=== PATIENT | male | born 1985 | race African-American/Black ===

== ENCOUNTER 2019-11-12 12:07 | Emergency (ER) | payer SELFPAY ==
--- NOTE | ~2019-11-12 | XR_ITS ---
XR wrist LT min 3V 11/12/2019 15:28 INDICATION: Left wrist pain PROCEDURE: 4 views left wrist COMPARISON: No prior studies for comparison. FINDINGS: Fracture, dislocation or subluxation is not identified. The soft tissues appear within norm al limits. No foreign bodies are identified. IMPRESSION: 1: NO ACUTE BONE OR JOINT ABNORMALITY IDENTIFIED. Reviewed, dictated and finalized at location A.
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
[2019-11-12 12:25] VITALS: BP 148/83; PULSE 86; RESP 18; TEMP 36.6; O2SAT 100
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
[2019-11-12 15:54] VITALS: BP 138/80; PULSE 78; RESP 18; O2SAT 99
== END 2019-11-12 15:55 | disposition home or self-care (01) ==
PROVIDERS: Emergency Provider Emergency Medicine
DX: S16.1XXA Strain of muscle, fascia and tendon at neck level, initial encounter (principal); M25.512 Pain in left shoulder; V49.9XXA Car occupant (driver) (passenger) injured in unspecified traffic accident, initial encounter
CPT/HCPCS: 72125; 73110; 99284

== ENCOUNTER 2023-01-24 14:56 | Emergency (ER) | payer OTHER, SELFPAY ==
[2023-01-24] VITALS (22 sets, daily range): BP systolic 156–200; BP diastolic 98–119; PULSE 68–102; RESP 13–21; TEMP 36.8; O2SAT 97–100
--- NOTE | ~2023-01-24 | US_ITS ---
EXAMINATION: US venous doppler UE DATE: 01/24/2023 19:52 INDICATION: Left upper limb pain. TECHNIQUE: Grayscale ultrasound images without and with compression and Doppler ultrasound images of the left upper extremity veins were obtained. COMPARISON: None. FINDINGS: The visualized portions of the left internal jugular vein, subclavian vein, axillary vein, brachial v eins, basilic vein, cephalic vein, radial vein, and ulnar vein are patent. IMPRESSION: 1. No deep venous thrombosis. Reviewed, dictated and finalized at location E.
--- NOTE | ~2023-01-24 | CT_ITS ---
EXAMINATION: CT cervical spine wo con DATE: 01/24/2023 18:28 INDICATION: Neck pain. TECHNIQUE: Computed tomography (CT) of the cervical spine was performed without intravenous contrast. Automated exposure control and iterative reconstruction technique were employed. The dose-length pro duct was 538.03 mGy-cm. COMPARISON: CT cervical spine 11/12/19 FINDINGS: There is cerumen in left external auditory canal. There is kyphosis of cervical spine. Ther e is 5 degrees dextrocurvature of cervical spine. Vertebral body heights are normal. There is moderat awilda decreased disc height at C3-C4, C4-C5, C5-6. The following disc levels are specifically discussed : C2-C3: There is mild bilateral uncovertebral joint osteoarthritis. There is mild bilateral facet join t osteoarthritis. There is no neural foraminal stenosis. There is no central canal stenosis. C3-C4: There is severe uncovertebral joint osteoarthritis. There is no facet joint osteoarthritis. Th ere is moderate bilateral neural foraminal stenosis. There is mild central canal stenosis. C4-C5: There is mild right and moderate left uncovertebral joint osteoarthritis. There is no facet edna int osteoarthritis. There is mild bilateral neural foraminal stenosis. There is mild central canal st enosis. C5-C6: There is moderate right and mild left uncovertebral joint osteoarthritis. There is no facet edna int osteoarthritis. There is mild right neural foraminal stenosis. There is mild central canal stenos is. C6-C7: There is no uncovertebral joint osteoarthritis. There is mild bilateral facet joint osteoarthr itis. There is no neural foraminal stenosis. There is no central canal stenosis. C7-T1: There is no uncovertebral joint osteoarthritis. There is moderate right and mild left facet edna int osteoarthritis. There is no neural foraminal stenosis. There is no central canal stenosis. IMPRESSION: 1. Moderate cervical spondylosis, worsened from 11/12/19. Reviewed, dictated and finalized at location E.
--- NOTE | ~2023-01-24 | XR_ITS ---
EXAMINATION: XR chest 2V DATE: 01/24/2023 16:09 INDICATION: Shortness of breath. TECHNIQUE: Frontal and lateral views of the chest were obtained. COMPARISON: Chest single view 04/25/2017 FINDINGS: There is no pneumonia, pleural effusion, or pneumothorax. The heart size is normal. IMPRESSION: 1. No acute cardiopulmonary disease. Reviewed, dictated and finalized at location E.
--- NOTE | ~2023-01-24 | XR_ITS ---
EXAMINATION: XR shoulder LT min 2V DATE: 01/24/2023 18:25 INDICATION: Left shoulder pain. TECHNIQUE: 4 views of left shoulder were obtained. COMPARISON: None. FINDINGS: Bone alignment is normal. No fracture. Joint spaces are normal. IMPRESSION: 1. Normal left shoulder. Reviewed, dictated and finalized at location E. IMPRESSION: 1. Normal left shoulder.
--- NOTE | ~2023-01-24 | CT_ITS ---
EXAMINATION: CTA chest PE protocol DATE: 01/24/2023 21:15 INDICATION: Left chest pain. Shortness of breath. TECHNIQUE: Computed tomography angiography (CTA) of the chest was performed with 100 mL Omnipaque-350 intravenous contrast timed to evaluate the pulmonary arteries. Coronal maximum intensity projection 3D-reconstructions were created by the technologist. Automated exposure control and iterative reconst ruction technique were employed. The dose-length product was 1818.38 mGy-cm. COMPARISON: Chest 2 views 01/24/2023 FINDINGS: There is no pneumonia or pleural effusion. The heart size is normal. No pericardial effusio n. There is no pulmonary embolus. There is interbody fusion at T9-T10. IMPRESSION: 1. No pulmonary embolus. Reviewed, dictated and finalized at location E. IMPRESSION: 1. No pulmonary embolus.
--- NOTE | 2023-01-24 15:09 | ECG_ITS ---
Measurements Intervals [place] Rate: 97 P: 42 CT: 156 QRS: -17 QRSD: 86 T: 31 QT: 333 QTc: 425 Interpretive Statements SINUS RHYTHM INCOMPLETE RIGHT BUNDLE BRANCH BLOCK NONSPECIFIC T-WAVE ABNORMALITY- DIFFUSE LEADS BORDERLINE ECG NO PREVIOUS ECG AVAILABLE FOR COMPARISON Electronically Signed On 01-24-2023 17:12:34 CDT by Brandon West D.O.
[2023-01-24 15:29] LABS: Basophils Absolute Auto 0.1 K/mm3 (0.0-0.1); Basophils Percent Auto 0.6 % (0.2-1.2); Eosinophils Absolute Auto 0.1 K/mm3 (0-0.3); Eosinophils Percent Auto 0.9 % (0-4.4); Hematocrit 43.2 % (42.0-52.0); Hemoglobin 13.2 g/dL (14.0-18.0); Immature Granulocyte Absolute 0.08 K/mm3 (0.00-0.031); Immature Granulocyte Percent A 0.9 % (0-0.5); Lymphocytes Absolute Auto 1.74 K/mm3 (0.9-3.2); Lymphocytes Percent Auto 20.2 % (18.3-44.2); Mean Corpuscular HGB Conc 30.6 g/dl (32-36); Mean Corpuscular Hemoglobin 26.3 pg (26-34); Mean Corpuscular Volume 86.2 fl (80-100); Monocytes Absolute Auto 0.8 K/mm3 (0.1-0.6); Monocytes Percent Auto 9.2 % (2.6-8.5); Neutrophils Absolute Auto 5.9 K/mm3 (1.3-6.7); Neutrophils Percent Auto 68.2 % (45.5-73.1); Platelet Count Result 322 k/mm3 (150-375); Red Blood Count 5.01 M/mm3 (4.6-6.20); Red Cell Distribution Width 13.4 % (11.5-14.5); White Blood Count 8.6 K/mm3 (4.5-10.0)
[2023-01-24 15:39] LABS: Alanine Aminotransferase 29 U/L (6-50); Albumin Level 4.3 g/dL (3.5-5.1); Alkaline Phosphatase 52 U/L (38-126); Anion Gap 8 mmol/L (8-16); Aspartate Amino Transferase 29 U/L (17-59); Bilirubin,Total 0.4 mg/dL (0.2-1.3); Blood Urea Nitrogen 21 mg/dL (9-20); Calcium 8.8 mg/dL (8.4-10.2); Carbon Dioxide 27 mmol/L (22-30); Chloride 104 mmol/L (98-107); Estimated CRCL calculation 101 ml/min; Estimated Glomerular Filt Rate > 60; Glucose 109 mg/dL (65-110); Potassium 4.2 mmol/L (3.4-5.0); Sodium 139 mmol/L (137-145)
[2023-01-24 15:40] LABS: INR 0.9; Partial Thromboplastin Time 26.2 SECONDS (22.3-36.8); Prothrombin Time 12.7 Seconds (11.1-14.7)
--- NOTE | 2023-01-24 18:19 | ED.UPPEXIN ---
HPI - Extremity Injury (Upper) General Chief Complaint: Extremity Injury, Upper Stated Complaint: Left arm pain Time Seen by Provider: 01/24/23 18:10 Source: patient Mode of arrival: ambulatory Limitations: no limitations History of Present Illness HPI narrative: This is a 37 year old male that presents to the ER for left shoulder pain. Ongoing over the last couple of days. Radiating into his neck. Reports the pain is dull and constant. Intermittently more sharp. No recent injuries or trauma. He does report he had an arthroscopic knee surgery about 3 weeks ago. Reports pain worse with certain movement. Report the pain takes his breath away at times. Denies fever, chest pain, or lower extremity edema. Related Data Allergies Allergy/AdvReac Type Severity Reaction Status Date / Time No Known Allergies Allergy Verified 01/24/23 14:57 Review of Systems Review of Systems: CONSTITUTIONAL: Denies fever CARDIOVASCULAR: Denies chest pain, palpitations, or edema. RESPIRATORY: Reports dyspnea. SKIN: Denies rash MUSCULOSKELETAL: Reports joint pain, and myalgia. NEUROLOGIC: Denies numbness, or weakness. All systems reviewed & are unremarkable except as noted in HPI and below PMFSH Past Medical History Medical History (Updated 01/24/23 @ 21:51 by Lacie Gillis PA-C) No active medical problems Social History Social History (Updated 01/24/23 @ 18:23 by Lacie Gillis PA-C) Smoking status: Never smoker Gender identity (if verbalized by the patient): Male Exam Narrative: GENERAL: Well-appearing, well-nourished, and in no acute distress. HEAD: Normocephalic, atraumatic. EYES: EOMI. NECK: No JVD CHEST: Clear to auscultation. No respiratory distress. No wheezes rales or rhonchi HEART: Regular rate and rhythm. No murmur heard. Normal peripheral pulses. EXTREMITIES: Normal range of motion. No edema. Strength equal in bilateral upper extremities (5/5) SKIN: Warm, dry, no rash. NEURO: No focal deficits. Alert and oriented x3. PSYCH: Normal mood and affect Course Course Emergency Course: Patient was updated on workup and agrees with plan of care. Resting comfortably Vital Signs Vital signs: Vital Signs Temperature 98.3 F 01/24/23 15:03 Pulse Rate 102 H 01/24/23 15:03 Respiratory Rate 20 09/18/23 15:03 Blood Pressure 200/119 H 01/24/23 15:03 Pulse Oximetry 100 01/24/23 15:03 Oxygen Delivery Room Air 01/24/23 15:03 Temperature 98.3 F 01/24/23 15:03 Pulse Rate 86 01/24/23 20:10 Respiratory Rate 15 01/24/23 20:10 Blood Pressure 156/99 H 01/24/23 20:10 Pulse Oximetry 99 01/24/23 20:10 Oxygen Delivery Room Air 01/24/23 15:03 MDM - Extremity Injury (Upper) MDM Narrative Medical decision making narrative: Patient presents to the ER for left shoulder pain, neck pain and reporting some shortness of breath after a recent surgery. Tachycardic and hypertensive upon arrival. This downtrended with treatment of pain. Most recent blood pressures 150s-160s systolic. Looking at past records it does seem patient has had elevated blood pressure dating back to 2017. Was instructed on the importance of following up with PCP for this. CBC is without leukocytosis. Shows normocytic anemia with hemoglobin of 13.2. Metabolic panel without concerning findings. EKG without concerning changes and baseline troponin is negative. Left shoulder x-ray is normal. CT scan of the cervical spine shows moderate cervical spondylosis. D-dimer elevated, so CTA of the chest was obtained. No evidence for PE or acute cardiopulmonary abnormality. Left upper extremity venous Doppler is negative for DVT. Patient was updated on work-up and agrees with plan of care. Instructed to have follow-up with primary provider. He was given warnings to return to the ER Differential Diagnosis Differential diagnosis: Likely other (shoulder sprain, rotator cuff tendonitis, cervical radiculopathy, arrhythmia, pneumonia, DVT
[2023-01-24] MEDS: KETOROLAC 15 MG/ML VIAL (*BKC) IV PUSH (18:40)
[2023-01-24 18:52] LABS: D Dimer 0.71 ug/mL (<0.48)
[2023-01-24 19:00] LABS: Troponin I < 0.012 ng/mL (0.000-0.034)
== END 2023-01-24 22:23 | disposition home or self-care (01) ==
PROVIDERS: Emergency Medicine; Emergency Provider Physician Assistant; PCP Nurse Practitioner Family
DX: M25.512 Pain in left shoulder (principal); M54.2 Cervicalgia; R03.0 Elevated blood-pressure reading, without diagnosis of hypertension; Z98.890 Other specified postprocedural states; I45.10 Unspecified right bundle-branch block; R94.31 Abnormal electrocardiogram [ECG] [EKG]; M47.812 Spondylosis without myelopathy or radiculopathy, cervical region
CPT/HCPCS: 36415; 71046; 71275; 72125; 73030; 80053; 84484; 85025; 85380; 85610; 85730; 93005; 93971; 96374; 99284; J1885; Q9967

== ENCOUNTER 2023-04-01 16:49 | Emergency (ER) | payer OTHER, SELFPAY ==
--- NOTE | ~2023-04-01 | XR_ITS ---
XR knee RT 3V DATE: 04/01/2023 17:10 INDICATION: Anterior knee pain and swelling after to work injuries TECHNIQUE: AP, lateral and sunrise views COMPARISON: None FINDINGS: Small suprapatellar knee joint effusion is suggested. No fracture or dislocation, periosteal reaction or bone destruction. There is mild periarticular spur ring of the patellofemoral and lateral compartments and mild loss of medial compartment joint space h eight. No radiopaque interarticular loose body or chondrocalcinosis is detected. IMPRESSION: Small suprapatellar knee joint effusion is suggested Mild tricompartment osteoarthritis Reviewed, dictated and finalized at location A. RNATIONAL LOGISTICS COORDINATOR
--- NOTE | 2023-04-01 16:52 | ED.GENADULT ---
HPI - General Adult General Chief complaint: Extremity Injury, Lower Stated complaint: Right Knee Injury Time Seen by Provider: 04/01/23 16:52 Source: patient, RN notes reviewed and old records reviewed Mode of arrival: ambulatory Limitations: no limitations History of Present Illness HPI narrative: 37-year-old male [facility] with complaint right knee pain for 2-3 days. Patient states specific layla at work and slipped twisting knee on Tuesday. Patient states had meniscus tear approximately 2 months ago. patient has not tried any medications at home for pain. patient states pain is worse with ambulation Related Data Home Medications Medication Instructions Recorded Confirmed famotidine 40 mg tablet 40 mg PO PRN PRN Heartburn 04/01/23 04/01/23 Allergies Allergy/AdvReac Type Severity Reaction Status Date / Time No Known Allergies Allergy Verified 04/01/23 17:00 Review of Systems Review of Systems: All systems reviewed & are unremarkable except as noted in HPI and below Constitutional: Constitutional: Reports no additional constitutional complaints Eyes: Eyes: Reports no additional eye complaints ENT: Reports system reviewed and no additional complaints, except as documented Cardiovascular: Cardiovascular: Reports no additional cardiovascular complaints Respiratory: Respiratory: Reports no additional respiratory complaints Musculoskeletal: Musculoskeletal: Reports arthralgias Comments: right knee pain Neurologic: Reports system reviewed and no additional complaints, except as documented [facility] Past Medical History Medical History No active medical problems Tear meniscus knee Social History Social History Smoking status: Never smoker Gender identity (if verbalized by the patient): Male Comments At the time of my signature, I reviewed and agree with the nursing past medical, surgical, social, and family history. There is no relevant family history pertinent to the patient complaint. Exam Const: General: cooperative, healthy appearing, no acute distress and well nourished Nutritional Appearance: well nourished Orientation/consciousness: patient oriented x3 Limitations: no limitations HENMT: Head: normal to inspection and normocephalic Ears: external ears normal, TM's normal bilaterally, mastoids normal and Abnormal EAC present Face/Nose/Sinus: normal facial exam Face and sinus: normal facial exam Mouth: Yes Normal oral and palatal mucosa present, Yes oropharynx normal and Yes moist mucous membranes Throat: posterior oropharynx normal, tonsils normal, uvula midline and no uvular edema Eyes: General: appearance normal, both eyes and all related structures Sclera: sclerae normal Pupils: Equal, round and reactive pupils present Resp: Effort & Inspection: normal respiratory effort, able to speak in complete sentences, no audible wheezes, no cough, no respiratory distress and no retractions Auscultation: clear to auscultation bilaterally, no crackles, no rales, no rhonchi and no wheezes Cardio: Rate: regular rate Rhythm: regular rhythm Skin: General skin exam: normal color and no rashes or lesions noted Neuro: General: patient oriented x3 Cranial nerves: Yes Equal, round and reactive pupils present Extrem: Right lower extremity: knee Details: normal to inspection and tenderness; no swelling, ROM normal, abnormal knee ligament exam, no ecchymosis and no crepitus Psych: Appearance: grossly normal Course Course Emergency Course: Some parts of this dictation were generated by voice recognition software and may contain typographical and/or grammatical inaccuracies. Level of Care: Express Care Visit Vital Signs Vital signs: Reviewed Medical Decision Making MDM Narrative Medical decision making narrative: patient sitting in room without sig
[2023-04-01 17:10] VITALS: BP 134/84; PULSE 94; RESP 16; TEMP 37.2; O2SAT 100
== END 2023-04-01 17:28 | disposition home or self-care (01) ==
PROVIDERS: Emergency Provider Nurse Practitioner
DX: M25.461 Effusion, right knee (principal); S86.911A Strain of unspecified muscle(s) and tendon(s) at lower leg level, right leg, initial encounter; X50.0XXA Overexertion from strenuous movement or load, initial encounter; Y99.0 Civilian activity done for income or pay
CPT/HCPCS: 73562; 99213; G0463

== ENCOUNTER 2023-04-20 11:04 | Emergency (ER) | payer OTHER, SELFPAY ==
--- NOTE | ~2023-04-20 | XR_ITS ---
EXAMINATION: XR knee RT min 4V DATE: 04/20/2023 11:45 INDICATION: Right knee pain. Injury. TECHNIQUE: 4 views of right knee were obtained. COMPARISON: Right knee radiographs 04/01/2023 FINDINGS: Bone alignment is normal. No fracture. There is mild tricompartmental osteoarthritis. There is a small knee joint effusion. IMPRESSION: 1. Mild right knee osteoarthritis. 2. Small right knee joint effusion. Reviewed, dictated and finalized at location A. TY ATTORNEY
--- NOTE | ~2023-04-20 | XR_ITS ---
EXAMINATION: XR knee LT min 4V DATE: 04/20/2023 11:44 INDICATION: Left knee pain. TECHNIQUE: 4 views of left knee including standing views were obtained. COMPARISON: None. FINDINGS: Bone alignment is normal. No fracture. There is mild tricompartmental osteoarthritis charac terized by tiny marginal osteophytes. No knee joint effusion. IMPRESSION: 1. Mild left knee osteoarthritis. Reviewed, dictated and finalized at location A. FACTURING LEADER
--- NOTE | 2023-04-20 11:09 | ED.NAVMDI ---
HPI - Nausea/Vomiting/Diarrhea General Chief complaint: Nausea/Vomiting/Diarrhea Stated complaint: VOMITING/BILAT KNEE PAIN Time Seen by Provider: 04/20/23 11:25 Source: patient Mode of arrival: ambulatory Limitations: no limitations History of Present Illness HPI Narrative: Jay is a 37-year-old male patient presenting to clinic today with complaints of 1 day of vomiting and nausea. He reports that his symptoms of nausea vomiting has resolved today. States he had a normal bowel movement this morning and is passing gas. Denies any blood in his stool. He is also reporting some bilateral knee pain. States he re-injured his knee yesterday by twisting it at work. Is stating that his left knee is now hurting because the is over compensating for the right knee. Is having pain with flexion of the right knee. History of surgery of the right knee for of meniscus tear. Related Data Home Medications Medication Instructions Recorded Confirmed famotidine 40 mg tablet 40 mg PO PRN PRN Heartburn 04/01/23 04/20/23 Allergies Allergy/AdvReac Type Severity Reaction Status Date / Time No Known Allergies Allergy Verified 04/20/23 11:26 Review of Systems Review of Systems: Pertinent positives per HPI. Patient denies any fever, chills, rash, headache, visual changes, dizziness, cough, runny nose, sore throat, shortness of breath, chest pain, palpitations, nausea, vomiting, diarrhea, constipation, abdominal pain, or any urinary issues. [facility] Past Medical History Medical History No active medical problems Tear meniscus knee Social History Social History Smoking status: Never smoker Gender identity (if verbalized by the patient): Male Comments At the time of my signature, I reviewed and agree with the nursing past medical, surgical, social, and family history. There is no relevant family history pertinent to the patient complaint. Exam Narrative: General: Well-developed, well nourished, in no apparent distress. Head: Normocephalic, atraumatic. Cardio: Regular rate and rhythm, s1 and s2 normal, no murmur appreciated. Resp: Clear to auscultation bilaterally, no rhonchi, rales, wheezing or rubs. Abdomen: Soft, pliable, bowel sounds present in all quadrants, non-tender to palpation, no organomegly, no CVAT tenderness. Musculoskeletal: No deformity, mild swelling noted to the right knee when compared to the left knee, tender to palpation over the medial, anterior, and lateral right knee and over the anterior left knee, no pain with valgus and varus testing of the left knee but pain with valgus varus testing to the right knee, mild crepitus felt with flexion extension of the right knee. No crepitus felt with extension and flexion of the left knee. Grossly normal range of motion, muscle strength strong and equal, peripheral pulse strong, no edema, no cyanosis, normal gait and station Course Course Emergency Course: Portions of this record may have been created with voice recognition software. Level of Care: Express Care Visit Vital Signs Vital signs: Vital signs reviewed MDM - Nausea/Vomiting/Diarrhea MDM Narrative Medical decision making narrative: At the time of visit patient is resting comfortably on the exam table. Patient appears to be nontoxic. X-rays of bilateral knees was performed and shows moderate osteoarthritis to bilateral knees as well as a small joint knee effusion to the right knee. Patient had nausea vomiting yesterday with that has subsided. Patient reports that he had a normal bowel movement today and is passing gas. Supportive measures were discussed with the patient and they voiced understanding discharge instructions and agrees to treatment plan. Return precautions reviewed Differential Diagnosis Differential diagnosis: Likely traveler's diarrhea, gastroenteritis, dehyd
[2023-04-20 11:22] VITALS: BP 143/89; PULSE 106; RESP 16; TEMP 37.1; O2SAT 100
== END 2023-04-20 12:10 | disposition home or self-care (01) ==
PROVIDERS: Emergency Provider Nurse Practitioner Family
DX: R11.2 Nausea with vomiting, unspecified (principal); M17.0 Bilateral primary osteoarthritis of knee; M25.461 Effusion, right knee
CPT/HCPCS: 73564; 99214; G0463